=== PATIENT | male | born 1960 | race Caucasian/White ===

== ENCOUNTER → 2017-08-18 | Outpatient (CLI) | payer OTHER | LOC: FIMAGING 07:45 | PROVIDERS: ATTEND Orthopaedic Surgery | DX: Z01.818 Encounter for other preprocedural examination (principal); M17.11 Unilateral primary osteoarthritis, right knee ==

== ENCOUNTER 2017-08-28 08:31 | Observation (INO) | payer OTHER ==
--- NOTE | 2017-08-28 06:30 | PDHPUP ---
History & Physical Update H&P update statement: This history and physical update is based on an assessment of the patient which was completed after admission or registration (within 24 hours), but prior to the surgery/procedure. H&P update: H&P reviewed & patient examined, no change in patient's condition since H&P completed
[~2017-08-28 08:31] MED LIST: BUPI/epINEPH/KETOROLAC IU ONE; ROPIVACAINE 0.2% 80 MG, EPINEPHrine 0.2 MG, KETOROLAC TROMETHAMINE 30 MG in SYRINGE 0 ML IU ONE; TRANEXAMIC ACID 3,000 MG in NS (SYRINGE) 50 ML IRR ONE
[2017-08-28] MEDS ORDERED: OLOPATADINE 0.1% EACHEYE PRN (08:47)
[2017-08-28] MEDS ORDERED: ZOLPIDEM TARTRATE 5 MG TAB PO PRN (08:47)
[2017-08-28] MEDS ORDERED: INSULIN GLARGINE 12 UNIT SC PRN (08:47)
[2017-08-28] MEDS ORDERED: TRANEXAMIC ACID 3,000 MG/50 ML BAG IRR ONE (09:09)
[2017-08-28] MEDS ORDERED: ceFAZolin 2 GM/SWFI 2 GM/20 ML SYR IVP ONE (09:23)
[2017-08-28] MEDS ORDERED: ACETAMINOPHEN 325 MG TAB PO ONE (09:23)
[2017-08-28] MEDS ORDERED: FAMOTIDINE 20 MG TAB PO ONE (09:23)
[2017-08-28] MEDS ORDERED: DEXAMETHASONE 4 MG/ML VIAL IVP ONE (09:23)
[2017-08-28] MEDS ORDERED: LR 1,000 ML IV ONE (09:24)
[2017-08-28] MEDS ORDERED: LIDOCAINE 1% 2 ML INJ ID PRN (09:24)
[2017-08-28] MEDS ORDERED: ceFAZolin 2 GM/SWFI 20 ML SYR IVP ONE (09:58)
--- NOTE | 2017-08-28 11:21 | PDANEPAE ---
ANE Past Medical History - Cardiovascular History Hx Hypertension: Yes Hx Arrhythmias: No Hx Chest Pain: No Hx Coronary Artery / Peripheral Vascular Disease: Yes Hx CHF / Valvular Disease: No Hx Palpitations: No Cardiovascular History Comment: htn. high cholesterol. mi 2007. cad. cardiac stents x2. on plavix and asa - Pulmonary History Hx COPD: No Hx Asthma/Reactive Airway Disease: No Hx Recent Upper Respiratory Infection: No Hx Oxygen in Use at Home: No Hx Sleep Apnea: No Sleep Apnea Screening Result - Last Documented: Positive Pulmonary History Comment: le[place] triggers - Neurologic History Hx Cerebrovascular Accident: No Hx Seizures: No Hx Dementia: No - Endocrine History Hx Diabetes: Yes Endocrine History Comment: type 2 - Renal History Hx Renal Disorders: No - Liver History Hx Hepatic Disorders: No - Neurological & Psychiatric Hx Hx Neurological and Psychiatric Disorders: No - Cancer History Hx Cancer: No - Congenital Disorder History Hx Congenital Disorders: No Congenital History Comment: diabetetes - GI History Hx Gastrointestinal Disorders: No Gastrointestinal History Comment: gerd - Other Health History Other Health History: none - Chronic Pain History Chronic Pain: Yes (left ankle, generalized) - Surgical History Prior Surgeries: cardiac stents placed 2007-06 and 1 in 02/23/2001. 11 knee surgeries bilaterally. 7- on right. 4-on left. tonsillectomy at 16 yo ANE Review of Systems Review of Systems: - Exercise capacity METS (RN): 4 METS ANE Patient History - Allergies Allergies/Adverse Reactions: aspartame Allergy (Severe, Verified 08/04/17 15:58) Other-Enter Comments tramadol Allergy (Verified 02/20/15 13:52) Other-Enter Comments - Home Medications Home Medications: Aspirin [Aspirin 325 mg (*)] 162.5 mg PO DAILY 08/04/17 [Last Taken Unknown] Clopidogrel Bisulfate [Plavix (*)] 75 mg PO HS 08/04/17 [Last Taken 08/21/17] Diclofenac Sodium [Voltaren 75 MG (*)] 75 mg PO DAILY PRN 08/04/17 [Last Taken 08/21/17] Dulaglutide [Trulicity] 1.5 mg SQ SA 08/04/17 [Last Taken 08/22/17] FENOFIBRATE 160 mg PO DAILY 08/04/17 [Last Taken 08/21/17] Famotidine [Pepcid 20 MG (*)] 20 mg PO HS 08/04/17 [Last Taken 08/28/17] Hydromorphone HCl 2 mg PO DAILY PRN 08/04/17 [Last Taken Unknown] Ibuprofen/Diphenhydramine Cit [MOTRIN PM CAPLET] 1 each PO HS 08/04/17 [Last Taken 08/21/17] Insulin Glargine [Lantus 100 UNITS/ML (*)] 12 units SC DAILY PRN 08/04/17 [Last Taken Unknown] Multivitamins [Multivitamin (*)] 1 each PO DAILY 08/04/17 [Last Taken Unknown] Olopatadine 0.1% [Patanol 0.1% Opht Drop (RX)] 1 drops EACHEYE BID PRN 08/04/17 [Last Taken 08/21/17] [place]-3 Ethyl Est-Lovaza [Lovaza 1 gm (*)] 2 gm PO DAILY 08/04/17 [Last Taken ] Ramipril [Altace 5mg (*)] 5 mg PO HS 08/04/17 [Last Taken 08/21/17] Ubidecarenone [Co Q-10] 300 mg PO BID 08/04/17 [Last Taken 08/21/17] Zolpidem Tartrate [Ambien 5MG (*)] 1.25 mg PO HS PRN 08/04/17 [Last Taken ] glipiZIDE [Glipizide] 2.5 mg PO DAILY PRN 08/04/17 [Last Taken Unknown] metFORMIN HCL [Metformin HCl] 1,000 mg PO BIDMEAL 08/04/17 [Last Taken 08/27/17] - NPO status NPO Since - Liquids (Date): 08/27/17 NPO Since - Liquids (Time): 22:35 NPO Since - Solids (Date): 08/27/17 NPO Since - Solids (Time): 18:00 - Smoking Hx Smoking Status: Never smoked - Family Anes Hx Family Hx Anesthesia Complications: none ANE Labs/Vital Signs - Vital Signs Blood Pressure: 110/70 Heart Rate: 71 Respiratory Rate: 14 O2 Sat (%): 95 Height: 175.26 cm Weight: 106.594 kg ANE Physical Exam - Airway Neck exam: FROM Mallampati Score: Class 2 Mouth exam: normal dental/mouth exam - Pulmonary Pulmonary: no respiratory distress - Cardiovascular Cardiovascular: regular rate and rhythym - ASA Status ASA Status: II ANE Anesthesia Plan Anesthesia Plan: spinal Regional Anesthesia: adductor canal FNB
[2017-08-28] MEDS ORDERED: MIDAZOLAM 2 MG/2 ML VIAL ONE (11:39)
[2017-08-28] MEDS ORDERED: fentaNYL 250 MCG/5 ML INJ ONE (11:39)
[2017-08-28] MEDS ORDERED: PROPOFOL 200 MG/20 ML VIAL ONE (11:52)
[2017-08-28] MEDS ORDERED: DIPHENOXYLATE/ATROPINE LOMOTIL 1 TAB PO PRN (12:05)
[2017-08-28] MEDS ORDERED: LACTULOSE 20 GM/30 ML UDCUP PO PRN (12:05)
[2017-08-28] MEDS ORDERED: PROMETHAZINE HCL 25 MG/ML INJ IVP PRN (12:05)
[2017-08-28] MEDS ORDERED: ONDANSETRON DISINTEGRATING 4 MG TAB PO PRN (12:05)
[2017-08-28] MEDS ORDERED: MAGNESIUM HYDROXIDE 30 ML UDCUP PO PRN (12:05)
[2017-08-28] MEDS ORDERED: D50W 25 GM/50 ML SYR IVP PRN (12:05)
[2017-08-28] MEDS ORDERED: CYCLOBENZAPRINE 10 MG TAB PO PRN (12:05)
[2017-08-28] MEDS ORDERED: BISACODYL 10 MG SUPP PR PRN (12:05)
[2017-08-28] MEDS ORDERED: METOCLOPRAMIDE 10 MG/2 ML VIAL IVP PRN (12:05)
[2017-08-28] MEDS ORDERED: POLYETHYLENE GLYCOL 3350 17 GM PKT PO PRN (12:05)
[2017-08-28] MEDS ORDERED: PROMETHAZINE HCL 25 MG SUPPR PR PRN (12:05)
[2017-08-28] MEDS ORDERED: ONDANSETRON 4 MG/2 ML VIAL IVP PRN ×2 (12:05→13:33)
[2017-08-28] MEDS ORDERED: RANITIDINE 50 MG/2 ML VIAL ONE (12:05)
[2017-08-28] MEDS ORDERED: TEMAZEPAM 15 MG CAP PO PRN (12:05)
[2017-08-28] MEDS ORDERED: diphenhydrAMINE 25 MG CAP PO PRN (12:05)
[2017-08-28] MEDS ORDERED: oxyCODONE IR 5 MG TAB PO PRN (12:05)
[2017-08-28] MEDS ORDERED: INSULIN GLARGINE 100 UNITS/ML SYRINGE SC PRN (12:11)
[2017-08-28] MEDS ORDERED: OLOPATADINE 0.1% 5 ML OPHT.BTL EACHEYE PRN (12:15)
--- NOTE | 2017-08-28 12:15 | SOAPPROG ---
SOAP Progress Note Assessment/Plan: Assessment:Pt declines regional ansthesia Plan:Pt refused regional anesthesia. GA with adductor canal blolck in RR. 08/28/17 12:12 08/29/17 17:01 Objective: Vital Signs Temp Pulse Resp BP Pulse Ox 36.5 C 71 14 110/70 95 08/28/17 09:25 08/28/17 11:20 08/28/17 11:20 08/28/17 11:20 08/28/17 11:20 ICD10 Worksheet Patient Problems: Problems Problem Status Onset Primary localized osteoarthritis of right knee Acute
[2017-08-28] MEDS ORDERED: fentaNYL 100 MCG/2 ML INJ ONE ×2 (12:24→14:00)
[2017-08-28] MEDS ORDERED: LR 1,000 ML IV SCH (12:30)
--- NOTE | 2017-08-28 13:09 | POSTOPPROG ---
Post Op Note Date of Operation: 08/28/17 Surgeon: Amapro Gee Mortgage Advisor: Estefanía Gee PAc Anesthesiologist: Reinier Anesthesia: GET(General Endotracheal) Pre-op Diagnosis: R knee djd Post-op Diagnosis: same Indication: pain Procedure: R TKA with robotic assist Findings: DJD knee Inf/Abcess present in the surg proc area at time of surgery?: No EBL: 50-100
[2017-08-28] MEDS ORDERED: HYDROmorphONE/DILAUDID 2 MG/ML INJ IVP PRN (13:33)
[2017-08-28] MEDS ORDERED: OXYCODONE/APAP 5/325 TAB PO PRN (13:33)
[2017-08-28] MEDS ORDERED: ACETAMINOPHEN 500 MG TAB PO PRN (13:33)
[2017-08-28] MEDS ORDERED: HYDROCODONE/APAP 5/325 TAB PO PRN (13:33)
[2017-08-28] MEDS ORDERED: ALBUTEROL 3 ML DEYVIAL IH PRN (13:33)
[2017-08-28] MEDS ORDERED: NALOXONE HCL 0.4 MG/ML INJ IVP PRN ×2 (13:33)
[2017-08-28] MEDS ORDERED: fentaNYL 100 MCG/2 ML INJ IVP PRN (13:33)
--- NOTE | 2017-08-28 13:33 | POSTANESTH ---
Post Anesthetic Evaluation Cardiovascular Status: Similar to Pre-Op Cond Respiratory Status: Similar to Pre-op Cond. Level of Consciousness/Mental Status: Mildly Sleepy, Arousable Pain Control: Adequate, Prn Tx Ordered Nausea/Vomiting Control: Adequate, Prn Tx Ordered Complications Possibly Related to Anesthesia: None Noted
[2017-08-28] MEDS ORDERED: ceFAZolin 2 GM/DEXTROSE 100 ML IV SCH (14:00)
[2017-08-28] MEDS: Fenofibrate [Fenofibrate] 160 MG PO SCH (14:56)
[2017-08-28] MEDS: metFORMIN HCL 500 MG TAB PO SCH (17:25)
[2017-08-28] MEDS: ACETAMINOPHEN 325 MG TAB PO SCH ×2 (17:26→23:27)
--- NOTE | 2017-08-28 17:27 | GCON ---
[f rep st] CONSULTATION DATE OF CONSULTATION: 08/28/2017 REASON FOR CONSULTATION: I was asked by Dr. Gee to see this patient in regard to his medical i ssues including diabetes, as well as heart disease. HISTORY OF PRESENT ILLNESS: This is a 56-year-old man who is now status post right TKA by Dr. Lizzy parsons. Surgery was reportedly uneventful. He is ambulating with Physical Therapy already. He has sincere e pain at the operative site. No significant edema. He is denying chest pain or shortness of breath postoperatively. He has a history of diabetes type 2. He is followed by Dr. Carter. He is on relatively low-dose ins ulin glargine of 12 units, glipizide p.r.n., Trulicity daily as well as metformin. His last A1c was 6.6. Glucoses in the morning fasting normally run 100-150. He had an A1c of 5.9, had been told to i ncrease his carbon sugar intake at that point by Dr. Carter. He does not typically have low glucoses . He also has heart disease. He received a stent to his LAD [place] [address] Blackman. He currently has n o anginal symptoms, has no exertional symptoms of chest pain or shortness of breath either. He curre ntly follows with Dr. Sanon. He had an EKG done a month ago as well as a nuclear stress test which he reports were negative. PAST MEDICAL/SURGICAL HISTORY: 1. Coronary artery disease, as above. 2. Diabetes mellitus type 2. 3. Questionable rheumatoid arthritis. 4. Hypertension. 5. Right TKA. 6. 8 previous right knee orthopedic surgeries. 7. 4 left knee orthopedic surgeries. 8. Achilles tendon repair. MEDICATIONS: Please see medication reconciliation. ALLERGIES: Aspartame and Tramadol. SOCIAL HISTORY: He does not drink at all. He does not smoke. He lives at home by himself. He has a 2-story house. 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 FAMILY HISTORY: Both his mother and father had cancer. REVIEW OF SYSTEMS: A 10-point review of systems is conducted and is negative except per HPI. PHYSICAL EXAM: VITAL SIGNS: Blood pressure 134/75, heart rate 63, respiration rate 16, saturating a t 95% on room air. Temperature is 36.7. GENERAL: The patient is a pleasant man who is resting comf ortably. No acute distress. He is ambulating, favoring his left leg with a walker. HEENT: Normoce phalic, atraumatic. CARDIOVASCULAR: Regular rate and rhythm. No murmurs, rubs, or gallops. PULMON JOHN: Lungs clear to auscultation bilaterally. ABDOMEN: Soft, nontender, nondistended. SKIN: Show s no rash. : No [place]. NEUROLOGIC: Alert and oriented x3. He is moving all extremities. PSYCHI ATRIC: Normal mood and affect. LABS: Recent glucose is 134, his last A1c was 6.6. DATA: 1. I reviewed his chart including his operative report. 2. I reviewed his postoperative knee x-ray which shows him to be post knee replacement. 3. I reviewed his cardiac catheterization in 2009. He underwent a stent to his LAD. IMPRESSION AND PLAN: 1. Diabetes mellitus type 2: Glucoses are currently well controlled. Agree with his current medica tions as ordered including glargine, regular insulin p.r.n., metformin. Please notify Hospital Medic ine immediately if he has any hypoglycemia or significant hyperglycemia. 2. Coronary artery disease: Agree with aspirin as well as Plavix as ordered. He is not having any chest pain. Will respond if he has any concerning symptoms. Thank you for involving Hospital Medicine in the care of this patient. We will continue to follow. /[id number]/MODL
[2017-08-28] MEDS: INSULIN REGULAR HUMAN 100 UNIT/ML UNIT SC SCH ×2 (18:32→20:49)
[2017-08-28] MEDS ORDERED: glipiZIDE 5 MG TAB PO PRN (20:42)
[2017-08-28] MEDS: ceFAZolin 2 GM/SWFI 2 GM/20 ML SYR IVP SCH (20:55)
[2017-08-28] MEDS: SENNOSIDES/DOCUSATE SODIUM TAB PO SCH (20:56)
[2017-08-28] MEDS: FAMOTIDINE 20 MG TAB PO SCH (20:56)
[2017-08-28] MEDS ORDERED: CLOPIDOGREL BISULFATE 75 MG TAB PO SCH (21:00)
[2017-08-28] MEDS ORDERED: RAMIPRIL 5 MG CAP PO SCH (21:00)
[2017-08-29 03:26] VITALS: PULSE 65; RESP 18
[2017-08-29] MEDS: ACETAMINOPHEN 325 MG TAB PO SCH (04:56)
[2017-08-29] MEDS: ceFAZolin 2 GM/SWFI 2 GM/20 ML SYR IVP SCH (04:57)
[2017-08-29 06:34] VITALS: BP 111/70; TEMP 97.8; O2SAT 95
[2017-08-29] MEDS ORDERED: Dulaglutide [Trulicity] 1.5 MG SQ SCH (08:47)
[2017-08-29] MEDS ORDERED: ASPIRIN 325 MG TAB PO SCH (09:00)
[2017-08-29] MEDS: Fenofibrate [Fenofibrate] 160 MG PO SCH (09:25)
[2017-08-29] MEDS: metFORMIN HCL 500 MG TAB PO SCH (09:28)
[2017-08-29] MEDS: SENNOSIDES/DOCUSATE SODIUM TAB PO SCH (09:28)
[2017-08-29] MEDS: FAMOTIDINE 20 MG TAB PO SCH (09:28)
[2017-08-29] MEDS: INSULIN REGULAR HUMAN 100 UNIT/ML UNIT SC SCH (09:30)
--- NOTE | 2017-08-29 10:29 | SOAPPROG ---
SOAP Progress Note Assessment/Plan: Assessment: Patient is doing well today POD 1 s/p R TKA pain is well controlled. VTE ppx: recommend resuming plavix and aspirin D/c planning: d/c to home today Diabetes: appreciate hospitalist assistance managing comorbidities. Plan: 08/29/17 10:28 Subjective: Parish is doing well today, denies SOB, chest pain and N/V. Objective: Vital Signs Temp Pulse Resp BP Pulse Ox 36.6 C 65 18 111/70 95 08/29/17 06:33 08/29/17 06:33 08/29/17 06:33 08/29/17 06:33 08/29/17 06:33 Laboratory Results 08/29/17 04:39 08/28/17 08/29/17 08/30/17 05:59 05:59 05:59 Intake Total 2915 Output Total 1400 Balance 1515 RLE: incision dressing is clean and dry, NVI, +pf/df ICD10 Worksheet Patient Problems: Problems Problem Status Onset Primary localized osteoarthritis of right knee Acute
--- NOTE | 2017-08-29 11:08 | GDS ---
[f rep st] DISCHARGE SUMMARY ADMISSION DIAGNOSIS: Right knee osteoarthritis. DISCHARGE DIAGNOSIS: Right knee osteoarthritis. PROCEDURE: Right total knee arthroplasty. VTE PROPHYLAXIS: Recommend patient resume Plavix and aspirin. BRIEF DESCRIPTION OF HOSPITAL STAY: Patient was admitted for an elective joint arthroplasty. The pa trish tolerated the procedure well and has passed physical therapy. The patient was given appropriat e antibiotic prophylaxis and venous thromboembolism prophylaxis. The patient's pain was well control led on oral pain medication, patient was holding down food, and had urinated. Decision was made to d ischarge the patient. The patient was given post-operative prescriptions pre-operatively. PLAN: To follow up as scheduled at Dr. Gee's office September 17 at 9:30 a.m. /[id number]/MODL
--- NOTE | 2017-08-29 11:09 | ASDISCHSUM ---
Discharge Information Plan Status: Medically Cleared to Leave: Discharge Date:08/29/2017 11:01 AM CM D/C Disposition: ADT D/C Disposition:Home, Routine, Self-Care Projected Discharge Date:08/29/2017 11:00 AM Transportation at D/C: Discharge Delay Reason: Follow-Up Date:08/29/2017 11:00 AM Discharge Slot: Final Diagnosis: Placement Information Referral Type:*Home Health Care Services Referral ID:[id number] Provider Name: Address 1: Phone Number: Address 2: Fax Number: City: Selection Factors: State: Patient Contact Information Contact Name:JANA Relationship: Address: Work Phone: City: [facility] Phone: [facility] Code: Email: Financial Information Financial Class:Lucas [employer] Primary Plan Desc:[facility] Primary Plan Number:[id number] Secondary Plan Desc: Secondary Plan Number: Assessment Information Case Management Discharge Plan Note Case Management Discharge Discharge Order Complete? Answers: Yes Patient to Obtain Answers: Independently Medications Transportation Arranged Answers: Family/Friends Discharge Comments Notes: Patient discharged to home with no services. However, a referral was made to home care since PT recommended home PT and the surgeon did order a case management consult. When I asked the surgeon for home care orders, he refused. I had to call patient and inform him that surgeon did not want him to have home care despite indicating otherwise. Patient has follow up scheduled with surgeon. Date Signed: 08/29/2017 11:08 AM Electronically Signed By:Priyanka Shaikh RN Intervention Information Intervention Type:*Incorrect Registration Date of Service:08/28/2017 03:25 PM Patient Type:Inpatient Staff Member:REGINA Egan Kerry Hours: Discipline: Severity: Comment:
--- NOTE | 2017-08-29 13:09 | GOP ---
[f rep st] OPERATIVE REPORT DATE OF OPERATION: 08/28/2017 SURGEON: Sajan Gee MD BLOCK CUTTER: Estefanía Gee, NADEGE ANESTHESIA: Spinal. PREOPERATIVE DIAGNOSIS: Right knee osteoarthritis. POSTOPERATIVE DIAGNOSIS: Right knee osteoarthritis. PROCEDURE PERFORMED: Right total knee arthroplasty with computer navigation, robotic assist. FINDINGS: Severe medial and patellofemoral osteoarthritis. ESTIMATED BLOOD LOSS: 30 mL. INDICATIONS: The patient is a 56-year-old male with severe and progressive pain and deformity of the right knee unresponsive to conservative care. The risks and benefits of surgical intervention were explained in detail. DESCRIPTION OF PROCEDURE: The patient was brought to the operative room and placed on the table in t he supine position. Spinal anesthesia was induced without difficulty. A pneumatic tourniquet was appl ied about the right proximal thigh, and the leg was prepped and draped in a sterile fashion. The leg basurto was applied. After exsanguination by elevation the tourniquet was inflated to 250 mmHg. Incision was made anterior medial from the tibial tuberosity to a point 2 cm proximal to the superior pole of the patella. Medial parapatellar arthrotomy was carried out from the superior pole of the pa tella and posteriorly in line with the fibers of the Type II VMO. The medial collateral ligament was elevated and the infrapatellar fat pad was resected. The patella was everted and the articular surface was excised. A 35 mm patellar button was placed. Attention was turned first to the distal aspect of the femur. After exposure of the femur, 2 half pi ns were placed for fixation of the femoral array. In a similar fashion, 2 pins were placed anteromed ial on the tibia for fixation of the tibial array. External land marking and registration of the hip center were performed without difficulty. Internal femoral and tibial registration was carried out without difficulty and the femoral and tibial checkpoints were placed and verified for accuracy. Attention was turned to the femur. The foot print for the size 5 femoral component was cut with the saw using the eToro robotic system and verified for accuracy against the CT based plan. In a similar f ashion, the saw was used to cut the footprint for the size 6 tibial component using the eToro system an d verified for accuracy against the CT based plan. The tibial articular surface was excised without d ifficulty, followed by the intercondylar box cut. The knee was extended and the remnants of the medial and lateral meniscus were excised. The posterior capsule was injected with ropivacaine, epinephrine and Toradol. A size 2 x 9 mm polyethylene tibial tray was positioned. Trial reduction was then carried out. There was excellent range of motion, alig nment, and stability using the permanent 9 mm polyethylene. All trials were then removed. The joint was thoroughly irrigated and carefully dried. The press fit c omponents were implanted. The permanent 9 mm polyethylene was placed without difficulty. The tourniquet was deflated and all bleeders were coagulated. The wound was thoroughly irrigated and closed using interrupted sutures of 2-0 Vicryl for the joint capsule. The subcu was closed with 3-0 V icryl and the skin with 4-0 Monocryl. Dermabond and Steri-Strips were applied followed by a compress zac dressing. The patient was then moved from the operating room to the recovery room in good conditi on, having tolerated the procedure well. /[id number]/MODL
== END 2017-08-29 11:01 | disposition home health service (06) ==
LOC: F3N 08:31 → INTOOBSV 08:31 → F3N 14:14
PROVIDERS: ADMIT Orthopaedic Surgery; ATTEND Orthopaedic Surgery
DX: M17.11 Unilateral primary osteoarthritis, right knee (principal); I25.10 Atherosclerotic heart disease of native coronary artery without angina pectoris; E11.9 Type 2 diabetes mellitus without complications; E78.5 Hyperlipidemia, unspecified; I10 Essential (primary) hypertension; K21.9 Gastro-esophageal reflux disease without esophagitis; G89.29 Other chronic pain; I25.2 Old myocardial infarction; Z95.5 Presence of coronary angioplasty implant and graft
CPT/HCPCS: 20985; 27447; 73560; 97110; 97116; 97161; 97165; 97530; G0378; J0171; J0690; J1100; J1815; J1885; J2250; J2704; J2780; J3010